=== PATIENT | female | born 1940 | race Two or more races ===

== ENCOUNTER 2020-07-31 08:23 | Emergency (ER) | payer OTHER ==
[~2020-07-31] VITALS: Ht 160 cm; Wt 64.0 kg
[~2020-07-31 08:23] MED LIST: KEFLEX500 MG PO
[2020-07-31] MEDS ORDERED: SIMVASTATIN5 MG (09:34)
[2020-07-31] MEDS ORDERED: SYNTHROID50 MCG (09:34)
[2020-07-31] MEDS ORDERED: VERAPAMIL ER240 MG (09:34)
[2020-07-31] MEDS ORDERED: PEPCID AC20 MG PO (12:41)
[2020-07-31] MEDS ORDERED: ONDANSETRON HCL4 MG PO (12:41)
[2020-07-31] MEDS ORDERED: MECLIZINE HCL25 MG PO (12:41)
== END 2020-07-31 13:03 | disposition home or self-care (01) ==
LOC: ER 08:23
DX: R42 Dizziness and giddiness (principal); R11.0 Nausea

== ENCOUNTER 2021-02-21 07:58 | Outpatient (CLI) | payer OTHER ==
[~2021-02-21 07:58] MED LIST changes: +MECLIZINE HCL25 MG PO; +ONDANSETRON HCL4 MG PO; +PEPCID AC20 MG PO; +SIMVASTATIN5 MG; +SYNTHROID50 MCG; +VERAPAMIL ER240 MG
== END 2021-02-21 08:12 | disposition home or self-care (01) ==
LOC: RAD 07:58
DX: M62.830 Muscle spasm of back (principal); M54.59 Other low back pain; I10 Essential (primary) hypertension

== ENCOUNTER 2021-08-25 08:56 | Emergency (ER) | payer OTHER ==
[~2021-08-25] VITALS: Ht 160 cm; Wt 68.0 kg
== END 2021-08-25 12:20 ==
LOC: ER 08:56
DX: M54.42 Lumbago with sciatica, left side (principal)

== ENCOUNTER 2022-02-06 08:04 | Outpatient (CLI) | payer OTHER | END 2022-02-06 08:06 | disposition home or self-care (01) | LOC: NUCLEAR 08:04 | DX: R01.1 Cardiac murmur, unspecified (principal) ==

== ENCOUNTER 2022-10-29 23:13 | Emergency (ER) | payer OTHER ==
[~2022-10-29] VITALS: Ht 160 cm; Wt 67.6 kg
[2022-10-29] MEDS ORDERED: LOSARTAN POTASS50 MG PO (23:33)
[2022-10-30] MEDS ORDERED: INTESTINEX680 M1 PO (02:46)
[2022-10-30] MEDS ORDERED: PEPCID20 MG PO (02:46)
[2022-10-30] MEDS ORDERED: DICY20TA PO (02:46)
[2022-10-30] MEDS ORDERED: VISTARIL25 MG PO (02:46)
== END 2022-10-30 03:33 | disposition home or self-care (01) ==
LOC: ER 23:13
DX: A05.9 Bacterial foodborne intoxication, unspecified (principal); R11.2 Nausea with vomiting, unspecified; I10 Essential (primary) hypertension; E03.9 Hypothyroidism, unspecified; R42 Dizziness and giddiness

== ENCOUNTER 2022-12-19 07:54 | Outpatient (CLI) | payer OTHER ==
[~2022-12-19 07:54] MED LIST changes: +DICY20TA PO; +INTESTINEX680 M1 PO; +LOSARTAN POTASS50 MG PO; +PEPCID20 MG PO; +VISTARIL25 MG PO
== END 2022-12-19 08:00 | disposition home or self-care (01) ==
LOC: RAD 07:54
DX: Z01.810 Encounter for preprocedural cardiovascular examination (principal)

== ENCOUNTER → 2023-02-14 | Outpatient (CLI) | payer OTHER | END | disposition home or self-care (01) | LOC: NUCLEAR 02-03 13:15 | PROVIDERS: ATTEND Specialist | DX: M81.0 Age-related osteoporosis without current pathological fracture (principal) ==